=== PATIENT | female | born 1960 | race Caucasian/White ===

== ENCOUNTER → 2016-07-07 | Outpatient (CLI) | payer MEDICAID ==
[~2016-07-07] MED LIST: GADOBUTROL 10 ML VIAL IVP ONE
--- NOTE | 2016-07-07 09:39 | MR ---
MRI Bilateral Breasts Without and With Contrast History: History of atypical ductal hyperplasia. High risk screening. ICD-10 code Z87.898. Comparison: Mammography April 2016. Technique: Precontrast sagittal fat-saturated T2-weighted and Vibrant images of both breasts are obt ained. Subsequently, during intravenous administration of 5 mL of Gadavist, multiphasic sagittally a cquired Vibrant MR images through both breasts are obtained. Data is sent to the independent Confirm a workstation for additional analysis including 3D reconstruction, computer-aided detection (CAD), an d color-coded phase contrast enhancement evaluation. Findings: Mild underlying fibrocystic enhancement is seen in both breasts. No evidence of mass or abn ormal enhancement to suggest invasive breast carcinoma. Small cysts are seen in both breasts. The lar gest is inferiorly in the 5 to 6 o'clock position of the left breast measuring 6 mm. No suspicious in ternal mammary or axillary lymph nodes. Impression: Benign. BI-RADS: 2. Recommend screening mammogram in one year. Consider annual screening breast MRI.
== END ==
LOC: FIMAGING 07:07
PROVIDERS: ATTEND Surgery
DX: Z12.39 Encounter for other screening for malignant neoplasm of breast (principal); Z87.898 Personal history of other specified conditions
CPT/HCPCS: 0159T; 77059; A9585; C8908

== ENCOUNTER → 2017-06-04 | Outpatient (CLI) | payer MEDICAID | LOC: FIMAGING 09:36 | PROVIDERS: ATTEND Surgery | DX: Z12.31 Encounter for screening mammogram for malignant neoplasm of breast (principal) | CPT/HCPCS: G0202 ==

== ENCOUNTER → 2018-06-10 | Outpatient (CLI) | payer MEDICAID | LOC: FIMAGING 12:54 | PROVIDERS: ATTEND Obstetrics & Gynecology Gynecology | DX: N60.12 Diffuse cystic mastopathy of left breast (principal) | CPT/HCPCS: 0159T; 77059; A9585; C8908 ==

== ENCOUNTER → 2018-06-21 | Outpatient (CLI) | payer MEDICAID | LOC: FIMAGING 09:48 | PROVIDERS: ATTEND Obstetrics & Gynecology Gynecology | DX: Z12.31 Encounter for screening mammogram for malignant neoplasm of breast (principal) ==